=== PATIENT | male | born 1955 | race Caucasian/White ===

== ENCOUNTER → 2024-04-09 06:16 | Day surgery (SDC) | payer MEDICARE, OTHER, SELFPAY | LOC: GI 06:16 | PROVIDERS: ATTENDING PHYSICIAN Specialist | DX: Z12.11 Encounter for screening for malignant neoplasm of colon (principal); K57.30 Diverticulosis of large intestine without perforation or abscess without bleeding; Z86.010 Personal history of colon polyps | CPT/HCPCS: 45378 ==

== ENCOUNTER → 2025-08-12 10:26 | Outpatient (REF) | payer MEDICARE, OTHER, SELFPAY ==
[2025-08-12 12:52] LABS: Magnesium 1.9 mg/dl (1.6-2.3)
== END ==
LOC: HWLAB 10:26
PROVIDERS: ATTENDING PHYSICIAN Nurse Practitioner Family
DX: Z01.818 Encounter for other preprocedural examination (principal); E55.9 Vitamin D deficiency, unspecified; I10 Essential (primary) hypertension; E66.01 Morbid (severe) obesity due to excess calories; E11.69 Type 2 diabetes mellitus with other specified complication; Z12.5 Encounter for screening for malignant neoplasm of prostate; R06.83 Snoring; E78.5 Hyperlipidemia, unspecified
CPT/HCPCS: 36415; 83735

== ENCOUNTER → 2025-08-14 07:48 | Outpatient (REF) | payer MEDICARE, OTHER, SELFPAY ==
[2025-08-14 10:12] LABS: ALT (SGPT) 61 U/L (0-50); AST (SGOT) 43 U/L (17-59); Albumin 4.8 g/dl (3.5-5.0); Alkaline Phosphatase 70 U/L (38-126); Blood Urea Nitrogen 17 mg/dl (9-20); Calcium 9.9 mg/dl (8.4-10.2); Carbon Dioxide 24 mmol/L (22-30); Chloride 102 mmol/L (98-107); Glucose 144 mg/dl (70-99); HDL Cholesterol 57 mg/dl; Potassium 4.4 mmol/L (3.5-5.1); Sodium 133 mmol/L (135-145); Total Protein 7.8 g/dl (6.3-8.2); Very Low Density Lipoprotein 23 mg/dl (0-30); eGFR > 60.00
[2025-08-14 10:15] LABS: Hematocrit 44.9 % (39.0-52.0); Hemoglobin 15.3 g/dL (13.0-18.0); Mean Corp Hgb Conc. 34.1 g/dL (33.0-37.0); Mean Corpuscular Volume 89.1 fL (80.0-94.0); Nucleated Red Blood Cells % 0 % (-); Platelet Count 230 10^3/uL (130-400); Red Cell Dist. Width 13.4 % (11.5-14.5)
[2025-08-14 10:22] LABS: LDL Cholesterol, Calculated 145 mg/dl; Microalb - Urine Creatinine 62.900 mg/dl
[2025-08-14 10:26] LABS: Vitamin D, 25-OH*** 72.4 ng/mL (30-80)
[2025-08-14 10:35] LABS: Microalbumin, Random Urine <0.6 mg/dl (0.6-1.7)
[2025-08-14 10:40] LABS: PSA, Total - Screen 1.72 ng/ml (0.0-4.0)
[2025-08-14 14:09] LABS: Glycohemoglobin (HgbA1c) 6.3 % (4.0-5.9)
== END ==
LOC: HWLAB 07:48
PROVIDERS: ATTENDING PHYSICIAN Nurse Practitioner Family
DX: Z01.818 Encounter for other preprocedural examination (principal); E55.9 Vitamin D deficiency, unspecified; I10 Essential (primary) hypertension; E66.01 Morbid (severe) obesity due to excess calories; E11.69 Type 2 diabetes mellitus with other specified complication; Z12.5 Encounter for screening for malignant neoplasm of prostate; R06.83 Snoring; E78.5 Hyperlipidemia, unspecified
CPT/HCPCS: 36415; 80053; 80061; 82043; 82306; 82570; 83036; 84443; 85025; G0103